=== PATIENT | male | born 1990 | race Two or more races ===

== ENCOUNTER 2016-08-05 15:12 | Emergency (ER) | payer SELFPAY ==
[2016-08-05] MEDS ORDERED: ALBUTEROL/IPRATROPIUM 2.5/0.5 MG 3 ML/EACH DOSE ONE (15:21)
--- NOTE | 2016-08-05 16:11 | RAD ---
History: Asthma. Comparison: None. Technique: 2 views Findings: The soft tissue and bony structures are unremarkable. The heart size is appropriate. No infiltrate, effusion or pneumothorax is observed. The hilar and mediastinal structures are normal. Impression: 1. A negative 2 view chest
== END 2016-08-05 15:13 | disposition home or self-care (01) ==
LOC: ED 15:12
DX: J45.909 Unspecified asthma, uncomplicated (principal); F17.210 Nicotine dependence, cigarettes, uncomplicated; Z79.2 Long term (current) use of antibiotics; Z79.52 Long term (current) use of systemic steroids; Z79.51 Long term (current) use of inhaled steroids